=== PATIENT | male | born 1950 | race Caucasian/White ===

== ENCOUNTER 2017-07-04 09:52 | Day surgery (SDC) | payer OTHER, MEDICARE ==
[~2017-07-04] VITALS: Ht 170.2 cm; Wt 73.9 kg
[~2017-07-04 09:52] MED LIST: ADVAIR 250/501 DISK IH; AMRIX15 MG PO; FLOMAX0.4 MG PO; METFORMIN HCL500 M1 PO; MOTRIN800 MG PO; NOHOMEMEDS; PERCOCET 5/31 TABLET PO; PREDNISONE5 MG PO; SIMVASTATIN20 MG PO; SPIRIVA1 INHALATI IH; ULTRAM50 MG PO; VITAMIN B-12250 MCG PO; Voltaren XR PO; Zithromax PO
[2017-07-04 10:58] LABS: POINT-OF-CARE METER ID UU13113694
== END 2017-07-04 12:07 | disposition home or self-care (01) ==
LOC: PAIN 09:52 → SDC 10:30 → PAIN 12:07
PROVIDERS: Anesthesiology Pain Medicine
DX: M47.816 Spondylosis without myelopathy or radiculopathy, lumbar region (principal); M54.5 Low back pain; G89.29 Other chronic pain; M19.011 Primary osteoarthritis, right shoulder; M41.9 Scoliosis, unspecified; E78.5 Hyperlipidemia, unspecified; J44.9 Chronic obstructive pulmonary disease, unspecified; E11.9 Type 2 diabetes mellitus without complications; Z87.891 Personal history of nicotine dependence; Z79.84 Long term (current) use of oral hypoglycemic drugs; Z79.891 Long term (current) use of opiate analgesic
CPT/HCPCS: 82948; J1030; J2250; J3010; S0020

== ENCOUNTER 2017-07-11 09:41 | Day surgery (SDC) | payer OTHER, MEDICARE ==
[~2017-07-11 09:41] MED LIST changes: +LIDOCAINE PRILOCAINE TP; +[UNRECOGNIZED DRUG - OTHER] TP
[2017-07-11 10:27] LABS: POINT-OF-CARE METER ID UU13113694
== END 2017-07-11 11:47 | disposition home or self-care (01) ==
LOC: PAIN 09:41 → SDC 10:30 → PAIN 11:47
PROVIDERS: Anesthesiology Pain Medicine
DX: M47.816 Spondylosis without myelopathy or radiculopathy, lumbar region (principal); M54.5 Low back pain; G89.29 Other chronic pain; M19.011 Primary osteoarthritis, right shoulder; M48.06 Spinal stenosis, lumbar region; M41.9 Scoliosis, unspecified; E78.5 Hyperlipidemia, unspecified; M79.1 Myalgia; J44.9 Chronic obstructive pulmonary disease, unspecified; E11.65 Type 2 diabetes mellitus with hyperglycemia; Z79.84 Long term (current) use of oral hypoglycemic drugs; Z79.891 Long term (current) use of opiate analgesic; Z87.891 Personal history of nicotine dependence
CPT/HCPCS: 82948; J1030; J2250; J3010; S0020